=== PATIENT | female | born 1965 | race Caucasian/White ===

== ENCOUNTER → 2017-04-08 17:02 | Outpatient (CLI) | payer MEDICARE | END | disposition home or self-care (01) | LOC: D.MAMMO 02-25 10:00 | DX: R92.8 Other abnormal and inconclusive findings on diagnostic imaging of breast (principal) ==

== ENCOUNTER → 2017-07-13 17:21 | Outpatient (CLI) | payer MEDICARE | END | disposition home or self-care (01) | LOC: D.MAMMO 09:15 | DX: Z12.31 Encounter for screening mammogram for malignant neoplasm of breast (principal) ==

== ENCOUNTER 2017-11-09 15:51 | Observation (INO) | payer MEDICARE, MEDICAID ==
[~2017-11-09] VITALS: Ht 160 cm; Wt 90.0 kg
--- NOTE | ~2017-11-09 | HEMODYNAMI ---
PATIENT:ANDREY WILSON MEDICAL RECORD: [id number] : 63 LOCATION[facility] [facility] [id number] ADMISSION DATE: 11/09/17 Generatedon:11/10/201715:38 Patient name: ANDREY WILSON Patient #: [id number] SSN: [id number] : 1965 Date of study: 11/10/2017 Page: Of Hemodynamic Procedure Report Patient Data Patient Demographics Procedure consent was obtained First Name: ANDREY Gender: Female Last Name: KATIE : 1965 [facility] Initial: K Age: 52 year(s) Patient #: [id number] Race: Unknown SSN: [id number] Additional ID: [id number] Contact details Address: [place] [address] State: [place] City: [place] Zip code: [address] Past Medical History Allergies Allergen Reaction Date Comments Reported Other allergy 11/10/2017 Codeine Admission Admission Data Admission Date: 11/09/2017 Admission Time: 15:51 Room #: D.2126 Lab Results Lab Result Date: 11/10/2017 Lab Result Time: 0:00 Biochemistry Name Units Result Min Max BUN mg/dl 13 --(--*-)-- 7 18 Creatinine mg/dl 0.6 --(*---)-- 0.6 1.3 CBC Name Units Result Min Max Hemoglobin g/dl 14.3 --(*---)-- 13.5 17.5 Procedure Procedure Types Cath Procedure Diagnostic Procedure LHC LHC w/Coronaries Miscellaneous Procedures Moderate Sedation up to 15 minutes Procedure Description Procedure Date Procedure Date: 11/10/2017 Procedure Start Time: 15:24 Procedure End Time: 15:35 Procedure Staff Name Function Nathaniel Murguia MD Performing Physician Sheila Ga RT Monitor Mela Hall RT Scrub Anamaria Pino RN Nurse Procedure Data Cath Procedure Fluoroscopy Diagnostic fluoroscopy Total fluoroscopy Time: 1.6 time: 1.6 min min Diagnostic fluoroscopy Total fluoroscopy dose: 322 dose: 322 mGy mGy Contrast Material Contrast Material Type Amount (ml) Isovue 300 64 Entry Location Entry Primary Successful Side Size Upsize Upsize Entry Closure Succes sful Closure Location (Fr) 1 (Fr) 2 (Fr) Remarks Device Remarks Femoral Right 5 Fr Exoseal artery Estimated blood loss: 110 ml Diagnostic catheters Device Type Used For End Catheter Placement MULTIPACK JL 4.0 5Fr Procedure catheter MULTIPACK 3DRC 5Fr Procedure catheter MULTIPACK Pigtail 5 Fr Ventriculography catheter Procedure Complications No complications Procedure Medications Medication Administration Route Dosage 0.9% NaCl I.V. 100 ml/hr Oxygen NC 2 l/min Lidocaine 2% added to field 20 Heparin Flush Bag added to field 2 bags (1000units/500ml NS) Versed I.V. 2 mg Fentanyl I.V. 50 mcg Fentanyl I.V. 50 mcg Versed I.V. 2 mg Fentanyl I.V. 50 mcg Versed I.V. 1 mg Versed I.V. 1 mg Fentanyl I.V. 50 mcg Fentanyl I.V. 100 mcg Hemodynamics Rest HGB: 14.3 (g/dl) Heart Rate: 82 (bpm) Pressure Samples Time Site Value (mmHg) Purpose Heart Use Rate(bpm) 15:31 LV 130/9,11 Snapshot 97 15:32 AO 125/72(96) Pullback 96 Gradients Valve Time Site Site 2 Mean SEP/DFP Peak To Heart Use 1 (mmHg) (sec/min) Peak Rate (mmHg) (bpm) Aortic 15:32 LV AO 23 43 96 125/72(96) Calculations Valve P-P Mean Valve Index Valve Source Name Gradient Area Flow (cm2) Aortic 23 23 Snapshots Pre Cath Intra NCS Post Cath Vital Signs Time Heart Resp SPO2 etCO2 NIBP Rhythm Pain Sedation Rate (ipm) (%) (mmHg) (mmHg) Status Level (bpm) 14:56:21 87 18 98 0 114/68(87) NSR 0 (11) 10(A) , No pain 15:00:31 80 20 96 36.9 112/66(94) NSR 0 (11) 10(A) , No pain 15:04:40 80 18 98 33.1 117/68(89) NSR 0 (11) 10(A) , No pain 15:08:52 90 17 98 36.9 113/69(88) NSR 0 (11) 10(A) , No pain 15:13:02 87 20 96 37.6 115/66(83) NSR 0 (11) 10(A) , No pain 15:17:12 86 16 98 11.3 101/62(80) NSR 0 (11) 9(A) , No pain 15:21:22 92 20 98 23.3 107/63(88) NSR 0 (11) 9(A) , No pain 15:25:30 89 14 98 23.3 107/70(89) NSR 0 (11) 9(A) , No pain 15:29:38 91 16 96 27.8 116/68(90) NSR 0 (11) 9(A) , No pain 15:33:48 94 16 96 39.9 116/72(92) NSR 0 (11) 10(A) , No pain Medications Time Medication Route Dose Verified Delivered Reason Notes Effe ctiveness by by 14:40:29 0.9% NaCl I.V. 100 Nathaniel Anamaria used for ml/hr Blade Pino net programmer analyst 14:40:38 Oxygen NC 2 Nathaniel Anamaria Per l/min Blade Pino RN physician 14:40:47 Lidocaine 2% added 20ml Nathaniel Nathaniel for local to vial Blade Murguia MD anesthetic field 14:40:56 Heparin Flush added 2 Nathaniel Nathaniel used for Bag to bags Blade Murguia MD procedure (1000units/500ml field NS) 15:09:51 Versed I.V. 2 mg Nathaniel Anamaria for lBade Pino RN sedation 15:10:04 Fentanyl I.V. 50 Nathaniel Anamaria for mcg Blade Pino RN sedation 15:13:29 Fentanyl I.V. 50 Nathaniel Anamaria for amber Pino RN sedation 15:13:35 Versed I.V. 2 mg Nathaniel Anamaria for Blade Pino RN sedation 15:15:13 Fentanyl I.V. 50 Nathaniel Anamaria for amber Pino RN sedation 15:15:19 Versed I.V. 1 mg Nathaniel Anamaria for Blade Pino RN sedation 15:24:01 Versed I.V. 1 mg Nathaniel Anamaria for Blade Pino RN sedation 15:24:45 Fentanyl I.V. 50 Nathaniel Pino RN sedation 15:27:05 Fentanyl I.V. 100 Nathaniel Pino RN sedation Procedure Log Time Note 14:37:55 Lab Result : BUN 13 mg/dl 14:37:55 Lab Result : Hemoglobin 14.3 g/dl 14:37:55 Lab Result : Creatinine 0.6 mg/dl 14:38:26 Diagnostic Cath status Elective 14:38:28 Sheila Harmeet RT(R) sent for patient. Start room use. 14:38:29 Time tracking: Regular hours 14:38:35 Plan of Care:Hemodynamics will remain stable., Cardiac rhythm will remain stable., Comfort level will be maintained., Respiratory function will remain adequate., Patient/ family verbilizes understanding of procedure., Procedure tolerated without complication., Recovers from procedure without complications.. 14:40:29 0.9% NaCl 100 ml/hr I.V. was administered by Anamaria Pino RN; used for procedure; 14:40:38 Oxygen 2 l/min NC was administered by Anamaria Pino RN; Per physician; 14:40:47 Lidocaine 2% 20ml vial added to field was administered by Nathaniel Murguia MD; for local anesthetic; 14:40:56 Heparin Flush Bag (1000units/500ml NS) 2 bags added to field was administered by Nathaniel Murguia MD; used for procedure; 14:50:08 Patient received from Med II to CCL 2 Alert and oriented. Tansferred to table in Supine position. 14:50:09 Warm blankets applied, and jayla hugger turned on for patient comfort. 14:50:10 Correct patient and procedure confirmed by team. 14:50:11 Signed procedure consent form obtained from patient. 14:50:12 ECG and BP/O2 sat monitors applied to patient. 14:55:17 Vital chart was started 14:55:20 Baseline sample Acquired. 14:55:23 Rhythm: sinus rhythm 14:55:25 Full Disclosure recording started 14:55:43 H&P Date Dictated: 11/09/2017 Within 30 days and on chart.. 14:55:45 Pre-procedure instructions explained to patient. 14:55:47 Family in patients room. 14:55:49 Patient NPO since Midnight. 14:56:04 Patient allergic to Other allergyCodeine 14:56:10 Is the patient allergic to Iodine/contrast media? No. 14:56:11 Was the patient premedicated? Yes 14:56:13 Is patient on blood thinner?No 14:56:15 Patient diabetic? No. 14:56:19 Snore? Yes 14:56:20 Sleep apnea? No 14:56:27 Airway obstruction? Yes Asthma 14:56:31 Dentures? No ? 14:56:36 Patient pain scale 0/10 ?. 14:56:47 IV patent on arrival in left hand with 0.9% NaCl at [facility]. 14:56:52 Lab results completed and on chart. 14:56:55 Right groin area was prepped with chlora-prep and draped in sterile fashion 14:56:57 Alarms reviewed by RVicente N. 14:56:57 Sharps counted by scrub and verified by R.N. 14:56:58 Physician paged 15:08:00 Physician arrived 15:08:01 --------ALL STOP TIME OUT------ 15:08:02 Final Timeout: patient, procedure, and site verified with staff and physician. All members of the team are in agreement. 15:08:04 Right groin site verified by team. 15:08:07 Physical assessment completed. ASA score P 2 - A patient with mild systemic disease as per Nathaniel Murguia MD. 15:08:13 Sedation plan: IV Moderate Sedation Medication:Versed, Fentanyl 15:08:19 Use device set Femoral Dx 15:08:22 ACIST Syringe (65392) opened to sterile field. 15:08:22 Bag Decanter (2002S) opened to sterile field. 15:08:23 Medline Cath Pack ([id number]) opened to sterile field. 15:08:23 SHEATH 5FR [place] (IBE883) opened to sterile field. 15:08:24 DIAGNOSTIC WIRE .035 260cm J wire (972457) opened to sterile field. 15:08:26 ACIST Hand Control (81065) opened to sterile field. 15:08:26 ACIST Manifold (36561) opened to sterile field. 15:08:27 DIAGNOSTIC Multipack 5Fr catheter set (HT7633) opened to sterile field. 15:08:28 Tegaderm 4 x 4 (1626W) opened to sterile field. 15:08:32 PERCUTANEOUS ENTRY 19GA needle opened to sterile field. 15:09:51 Versed 2 mg I.V. was administered by Anamaria Pino RN; for sedation; 15:10:04 Fentanyl 50 mcg I.V. was administered by Anamaria Pino RN; for sedation; 15:13:29 Fentanyl 50 mcg I.V. was administered by Anamaria Pino RN; for sedation; 15:13:35 Versed 2 mg I.V. was administered by Anamaria Pino RN; for sedation; 15:15:13 Fentanyl 50 mcg I.V. was administered by Anamaria Pino RN; for sedation; 15:15:19 Versed 1 mg I.V. was administered by Anamaria Pino RN; for sedation; 15:18:42 Zero performed for pressure channel P1 15:18:51 Zero performed for pressure channel P1 15:24:01 Versed 1 mg I.V. was administered by Anamaria Pino RN; for sedation; 15:24:10 Procedure started. 15:24:22 Local anesthetic to right femoral artery with Lidocaine 2% by Nathaniel Murguia MD.INITIAL ACCESS ONLY 15:24:45 Fentanyl 50 mcg I.V. was administered by Anamaria Pino RN; for sedation; 15:25:35 A 5 Fr sheath was inserted into the Right Femoral artery 15:26:16 A MULTIPACK JL 4.0 5Fr catheter was advanced over the wire and used for Procedure. 15:27:05 Fentanyl 100 mcg I.V. was administered by Anamaria Pino RN; for sedation; 15:27:30 LCA angiography performed. 15:28:34 Catheter removed. 15:28:53 A MULTIPACK 3DRC 5Fr catheter was advanced over the wire and used for Procedure. 15:30:12 RCA angiography performed. 15:30:16 Catheter removed. 15:30:25 A MULTIPACK Pigtail 5 Fr catheter was advanced over the wire and used for Ventriculography. 15:31:00 LV gram done using DAVID 15:32:15 EF : 60 % 15:33:02 Catheter removed. 15:33:09 EXOSEAL 5Fr (EX500) opened to sterile field. 15:33:22 Sheath removed intact; hemostasis achieved with Exoseal to the Right Femoral artery. 15:33:25 Procedure ended.(Physican Out) 15:33:37 Fluoroscopy time 01.60 minutes. 15:33:56 Flurop Dose total: 322 15:33:56 Fluoroscopy dose: 322 mGy 15:34:01 Contrast amount:Isovue 300 64ml. 15:34:03 Sharps counted by scrub and verified by R.N. 15:34:08 Insertion/operative site no bleeding no hematoma. 15:34:11 Post-op/insertion site Right Femoral artery dressed using a 4 x 4 and Tegaderm. 15:34:13 Post Procedure Pulses reassessed and unchanged 15:34:17 Post procedure rhythm: unchanged. 15:34:20 Estimated blood loss: 110 ml 15:34:24 Post procedure instruction explained to patient.Patient verbalizes understanding. 15:34:32 Procedure and supply charges have been captured, reviewed, submitted and are correct. 15:34:51 Procedure Complication : No complications 15:34:54 Vital chart was stopped 15:34:55 See physician's report for complete and final results. 15:34:57 Report given to [facility]. 15:35:00 Patient transfered to [facility] with Bed. 15:35:03 Procedure ended. 15:35:03 Full Disclosure recording stopped 15:35:14 End room use (Document Last) Device Usage Item Name Manufacture Quantity Catalog Hospital Part Current Minimal Lot# / Number Charge Number Stock Stock Serial# Code ACIST Acist 1 50054 015022 715809 315914 20 Syringe Medical (79514) Systems Inc Bag Decanter Microtek 1 2001S 657607 21787 844744 5 () Medical Inc. Medline Cath Cardinal 1 [id number] 685721 68911 870088 5 Pack Health ([id number]) SHEATH 5FR Terumo 1 HTW007 921819 915178 862847 40 [place] (GRZ905) DIAGNOSTIC St Qasim 1 603036 607125 752313 102227 30 WIRE .035 260cm J wire (323300) ACIST Hand Acist 1 58089 892775 718617 670032 5 Control Medical (04391) Systems Inc ACIST Acist 1 48684 746787 095023 171204 5 Manifold Medical (39538) Systems Inc DIAGNOSTIC Cardinal 1 MC4535 703823 92532 326966 30 Multipack Health 5Fr catheter set (AH0033) Tegaderm 4 x 3M 1 1626W 874459 675927 537584 5 4 (1626W) PERCUTANEOUS [facility] 1 [id number] 126376 513284 5 ENTRY 19GA needle MULTIPACK JL Cardinal 1 990710 5 4.0 5Fr Health catheter MULTIPACK Cardinal 1 616679 5 3DRC 5Fr Health catheter MULTIPACK Cardinal 1 846035 5 Pigtail 5 Fr Health catheter EXOSEAL 5Fr Cardinal 1 EX500 928907 030803 505503 10 (EX500) Health Signature Audit [place] Stage Time Signature Unsigned Intra-Procedure 11/10/2017 Sheila Ga 3:38:21 PM RT(R) Signatures Monitor : Sheila Ga Signature : RT Date : Time : [address] [address]
[2017-11-09 16:24] VITALS: BP 129/55; Ht 160 cm; Wt 90.0 kg
[2017-11-09] MEDS ORDERED: EFFEXOR XR150 MG PO (16:31)
[2017-11-09] MEDS ORDERED: MINIPRESS2 MG PO (16:32)
[2017-11-09] MEDS ORDERED: REMERON15 MG PO (16:33)
[2017-11-09] MEDS ORDERED: ATIVAN1 MG PO (16:34)
[2017-11-09] MEDS ORDERED: VITAMIN B-1000 MCG/M IM (16:35)
[2017-11-09 16:45] LABS: BASOPHILS 0.3 % (0-2); EOSINOPHILS 0.1 % (0-7); HEMATOCRIT 42.7 % (36.0-48.0); HEMOGLOBIN 14.3 g/dL (12-16); IMMATURE GRANULOCYTES 0.1 % (0-5); MCH 31.4 pg (26.0-34.0); MCHC 33.5 g/dL (31.0-37.0); MCV 93.6 fL (80.0-100.0); MEAN PLATELET VOLUME 9.1 fL (7.4-10.4); MONOCYTES 7.8 % (2-11); NEUTROPHILS 59.7 % (40-80); PLATELET COUNT 270 10x3/uL (130-400); RBC 4.56 10x6/uL (4.00-5.40); RDW 13.3 % (11.5-14.5); WBC 7.5 10x3/uL (4.8-10.8)
[2017-11-09 17:10] LABS: ALKALINE PHOSPHATASE 137 U/L (46-116); ALT (SGPT) 102 U/L (10-68); BILIRUBIN - TOTAL 0.28 mg/dL (0.2-1.3); CALC OSMOLALITY 282 mosm/kg (275-300); CALCIUM 9.9 mg/dL (8.5-10.1); CARBON DIOXIDE 33.4 mmol/L (21.0-32.0); CHLORIDE - SERUM 105 mmol/L (98-107); CKMB 0.1 U/L (0.0-3.6); CREATINE KINASE 64 UL (21-215); CREATININE - SERUM 0.7 mg/dL (0.6-1.3); GLUCOSE 80 mg/dL (74-106); PROTEIN - SERUM 8.1 g/dL (6.4-8.2); SODIUM 143 mmol/L (136-145); UREA NITROGEN 11 mg/dL (7-18); eGFR NON AFRICAN AMERICAN > 90 mL/min (90-120)
[2017-11-09 17:13] LABS: TROPONIN-I < 0.017 ng/mL (0.000-0.060)
[2017-11-09 19:00] VITALS: BP 111/59
[2017-11-09 23:35] LABS: CKMB 0.1 U/L (0.0-3.6); CREATINE KINASE 66 UL (21-215); TROPONIN-I < 0.017 ng/mL (0.000-0.060)
[2017-11-10] VITALS: BP 127/69
[2017-11-10 04:00] VITALS: BP 125/71
[2017-11-10 05:36] LABS: CKMB 0.2 U/L (0.0-3.6); CREATINE KINASE 59 UL (21-215)
[2017-11-10 05:49] LABS: TROPONIN-I < 0.017 ng/mL (0.000-0.060)
--- NOTE | 2017-11-10 06:29 | NUR ---
IV TO RIGHT HAND FLUSED WITH OUT DIFFICULTY.
--- NOTE | 2017-11-10 07:15 | NUR ---
RESTING QUIETLY DENIES ANY NEEDS OR DISCOMFORT NAD NOTED
[2017-11-10 08:06] LABS: CALC OSMOLALITY 281 mosm/kg (275-300); CALCIUM 8.9 mg/dL (8.5-10.1); CHLORIDE - SERUM 105 mmol/L (98-107); CREATININE - SERUM 0.6 mg/dL (0.6-1.3); POTASSIUM - SERUM 4.2 mmol/L (3.5-5.1); SODIUM 141 mmol/L (136-145); UREA NITROGEN 13 mg/dL (7-18); eGFR NON AFRICAN AMERICAN > 90 mL/min (90-120)
[2017-11-10 08:07] LABS: GLUCOSE 123 mg/dL (74-106)
[2017-11-10 08:11] LABS: BASOPHILS 0.1 % (0-2); EOSINOPHILS 0 % (0-7); HEMATOCRIT 39.8 % (36.0-48.0); IMMATURE GRANULOCYTES 0.3 % (0-5); MCH 30.7 pg (26.0-34.0); MCHC 32.7 g/dL (31.0-37.0); MCV 93.9 fL (80.0-100.0); MEAN PLATELET VOLUME 9.6 fL (7.4-10.4); MONOCYTES 6.2 % (2-11); NEUTROPHILS 70.4 % (40-80); PLATELET COUNT 297 10x3/uL (130-400); RBC 4.24 10x6/uL (4.00-5.40); RDW 13.2 % (11.5-14.5); WBC 7.6 10x3/uL (4.8-10.8)
[2017-11-10 08:22] VITALS: BP 112/66
[2017-11-10 12:37] VITALS: BP 135/79
--- NOTE | 2017-11-10 15:52 | NUR ---
PATIENT RETURNED FROM TRANSITIONS RN CARE COORDINATOR AT THIS TIME. NO COMPLAINTS OF PAIN OR DISCOMFORT. GROIN SOFT NO PROBLEMS TO NOTE.
--- NOTE | 2017-11-10 18:59 | NUR ---
DISCHARGE INFORMATION REVIEWED WITH PATIENT AND PATIENT VERBALIZES INSTRUCTION. PATIENT AMBULATED IN ROOM WITH NO PROBLEM NOTED. NO DRAINAGE OR CHANGE IN CATH SITE. IV REMOVED CATHETER INTACT. PATIENT LEAVES FACILITY AT THIS TIME VIA PRIVATE TRANSPORT.
== END 2017-11-10 19:02 | disposition home or self-care (01) ==
LOC: D.M2 15:51 → OBSVTIME 15:51 → D.M2 11-10 19:02
PROVIDERS: Internal Medicine Cardiovascular Disease; ADMIT Family Medicine
DX: R07.89 Other chest pain (principal); F17.203 Nicotine dependence unspecified, with withdrawal; K21.9 Gastro-esophageal reflux disease without esophagitis

== ENCOUNTER → 2017-11-26 10:12 | Outpatient (CLI) | payer MEDICARE ==
[2017-11-09 16:24] VITALS: BMI 33.9
[~2017-11-26 10:12] MED LIST: ATIVAN1 MG PO; EFFEXOR XR150 MG PO; MINIPRESS2 MG PO; REMERON15 MG PO; VITAMIN B-1000 MCG/M IM
== END | disposition home or self-care (01) ==
LOC: D.RT 10:12
DX: R07.9 Chest pain, unspecified (principal); R06.02 Shortness of breath

== ENCOUNTER → 2018-02-23 09:54 | Outpatient (CLI) | payer MEDICARE, MEDICAID ==
[2017-11-09 16:24] VITALS: BMI 33.9
[2018-02-24 14:24] LABS: IMMUNOGLOBULIN A 129 mg/dL (87-352); IMMUNOGLOBULIN G 822 mg/dL (700-1600); IMMUNOGLOBULIN M 141 mg/dL (26-217)
[2018-02-28 05:39] LABS: IMMUNOGLOBULIN E 114 IU/mL (0-100)
== END | disposition home or self-care (01) ==
LOC: D.LAB 02-22 10:00
PROVIDERS: Internal Medicine Pulmonary Disease
DX: R94.2 Abnormal results of pulmonary function studies (principal)

== ENCOUNTER 2018-06-07 13:19 | Emergency (ER) | payer MEDICARE ==
[~2018-06-07] VITALS: Ht 160 cm; Wt 86.4 kg
[2018-06-07 13:44] VITALS: Ht 160 cm; Wt 86.4 kg
[2018-06-07] MEDS ORDERED: WELLBUTRIN SR150 MG PO (13:45)
[2018-06-07] MEDS ORDERED: ALBUTEROL1.25 MG/3 INH (13:46)
[2018-06-07] MEDS ORDERED: ULTRAM50 MG PO (13:46)
[2018-06-07 14:46] LABS: BASOPHILS 0.1 % (0-2); EOSINOPHILS 0 % (0-7); HEMATOCRIT 35.6 % (36.0-48.0); HEMOGLOBIN 11.4 g/dL (12-16); IMMATURE GRANULOCYTES 0.3 % (0-5); MCH 29.4 pg (26.0-34.0); MCV 91.8 fL (80.0-100.0); MEAN PLATELET VOLUME 8.9 fL (7.4-10.4); MONOCYTES 8.4 % (2-11); NEUTROPHILS 61.2 % (40-80); PLATELET COUNT 318 10x3/uL (130-400); RBC 3.88 10x6/uL (4.00-5.40); RDW 13.5 % (11.5-14.5); WBC 7.6 10x3/uL (4.8-10.8)
[2018-06-07 15:06] LABS: ALBUMIN 3.9 g/dL (3.4-5.0); ALKALINE PHOSPHATASE 141 U/L (46-116); ALT (SGPT) 31 U/L (10-68); BILIRUBIN - TOTAL 0.25 mg/dL (0.2-1.3); CALC OSMOLALITY 279 mosm/kg (275-300); CALCIUM 9.3 mg/dL (8.5-10.1); CARBON DIOXIDE 28.6 mmol/L (21.0-32.0); CHLORIDE - SERUM 105 mmol/L (98-107); CREATININE - SERUM 0.8 mg/dL (0.6-1.3); GLUCOSE 90 mg/dL (74-106); POTASSIUM - SERUM 4.3 mmol/L (3.5-5.1); SODIUM 141 mmol/L (136-145); UREA NITROGEN 10 mg/dL (7-18); eGFR NON AFRICAN AMERICAN 79 mL/min (90-120)
[2018-06-07 17:40] VITALS: BP 154/81
== END 2018-06-07 17:44 | disposition home or self-care (01) ==
LOC: D.ER 13:19
PROVIDERS: Family Medicine
DX: J44.9 Chronic obstructive pulmonary disease, unspecified (principal); R53.1 Weakness; F17.200 Nicotine dependence, unspecified, uncomplicated

== ENCOUNTER → 2018-10-20 08:38 | Outpatient (CLI) | payer MEDICARE ==
[2018-06-07 13:44] VITALS: BMI 33.7
[~2018-10-20 08:38] MED LIST changes: +ALBUTEROL1.25 MG/3 INH; +ULTRAM50 MG PO; +WELLBUTRIN SR150 MG PO
== END | disposition home or self-care (01) ==
LOC: D.MRI 08:30
DX: M25.511 Pain in right shoulder (principal)

== ENCOUNTER → 2018-12-07 14:07 | Outpatient (CLI) | payer MEDICARE ==
[2018-06-07 13:44] VITALS: BMI 33.7
== END | disposition home or self-care (01) ==
LOC: D.CT 14:07
DX: J18.1 Lobar pneumonia, unspecified organism (principal)

== ENCOUNTER → 2018-12-20 08:59 | Outpatient (CLI) | payer MEDICARE ==
[2018-06-07 13:44] VITALS: BMI 33.7
== END | disposition home or self-care (01) ==
LOC: D.RT 08:59
DX: J44.9 Chronic obstructive pulmonary disease, unspecified (principal)

== ENCOUNTER → 2019-05-27 10:00 | Outpatient (CLI) | payer MEDICARE ==
[2018-06-07 13:44] VITALS: BMI 33.7
== END | disposition home or self-care (01) ==
LOC: D.MAMMO 10:00
PROVIDERS: ATTEND Family Medicine
DX: Z12.31 Encounter for screening mammogram for malignant neoplasm of breast (principal)

== ENCOUNTER → 2019-06-20 12:43 | Outpatient (CLI) | payer MEDICARE ==
[2018-06-07 13:44] VITALS: BMI 33.7
== END | disposition home or self-care (01) ==
LOC: D.RT 12:43
PROVIDERS: ATTEND Internal Medicine Pulmonary Disease
DX: J44.9 Chronic obstructive pulmonary disease, unspecified (principal)

== ENCOUNTER → 2019-07-22 08:55 | Outpatient (CLI) | payer MEDICARE ==
[2018-06-07 13:44] VITALS: BMI 33.7
[~2019-07-22 08:55] MED LIST changes: +TORADOL10 MG PO; +ZOFRAN8 MG PO
== END | disposition home or self-care (01) ==
LOC: D.NM 08:55
PROVIDERS: ATTEND Family Medicine
DX: K80.20 Calculus of gallbladder without cholecystitis without obstruction (principal)

== ENCOUNTER 2019-07-25 09:19 | Emergency (ER) | payer MEDICARE ==
[~2019-07-25] VITALS: Ht 160 cm; Wt 86.4 kg
[~2019-07-25 09:19] MED LIST changes: -TORADOL10 MG PO; -ZOFRAN8 MG PO
[2019-07-25 09:27] VITALS: Ht 160 cm; Wt 86.4 kg
[2019-07-25 10:08] LABS: BASOPHILS 0.5 % (0-2); EOSINOPHILS 1.6 % (0-7); IMMATURE GRANULOCYTES 0.2 % (0-5); LYMPHOCYTES 36.9 % (15-50); MCH 29.9 pg (26.0-34.0); MCHC 33.3 g/dL (31.0-37.0); MCV 89.6 fL (80.0-100.0); MONOCYTES 7.4 % (2-11); NEUTROPHILS 53.4 % (40-80); PLATELET COUNT 261 10x3/uL (130-400); RBC 4.02 10x6/uL (4.00-5.40); WBC 4.3 10x3/uL (4.8-10.8)
[2019-07-25 10:14] LABS: ALBUMIN 3.5 g/dL (3.4-5.0); ALKALINE PHOSPHATASE 113 U/L (46-116); ALT (SGPT) 58 U/L (10-68); CALCIUM 9.3 mg/dL (8.5-10.1); CARBON DIOXIDE 23.8 mmol/L (21.0-32.0); CHLORIDE - SERUM 106 mmol/L (98-107); POTASSIUM - SERUM 3.8 mmol/L (3.5-5.1); PROTEIN - SERUM 7.3 g/dL (6.4-8.2); SODIUM 142 mmol/L (136-145); UREA NITROGEN 10 mg/dL (7-18); eGFR NON AFRICAN AMERICAN 61 mL/min (90-120)
[2019-07-25 10:16] LABS: AMYLASE - SERUM 47 U/L (25-115); LIPASE 112 U/L (73-393)
[2019-07-25 10:19] LABS: CALC OSMOLALITY 285 mosm/kg (275-300); GLUCOSE 166 mg/dL (74-106); TROPONIN-I < 0.017 ng/mL (0.000-0.060)
[2019-07-25 10:36] LABS: APPEARANCE CLEAR (CLEAR); BILIRUBIN NEGATIVE (NEGATIVE); COLOR STRAW (YELLOW); GLUCOSE NEGATIVE (NEGATIVE); KETONE NEGATIVE (NEGATIVE); NITRITE NEGATIVE (NEGATIVE); PROTEIN NEGATIVE (NEGATIVE); UROBILINOGEN NORMAL (NORMAL)
--- NOTE | 2019-07-25 11:04 | NUR ---
DR. DURBIN NOTIFIED AND REVIEWED PT'S BEHAVIOR AND ASSESSMENT RESULTS. PT IS A LOW RISK PER DR. DURBIN. DR. DURBIN STATED TO GIVE RESOURCES TO PT AT TIME OF DISCHARGE. NO FURTHER ORDERS AT THIS TIME. RESOURCES REVIEWED WITH PT AND SHE VERBALIZED UNDERSTANDING.
[2019-07-25] MEDS ORDERED: ZOFRAN8 MG PO (12:54)
[2019-07-25] MEDS ORDERED: TORADOL10 MG PO (12:54)
[2019-07-25 13:20] VITALS: BP 107/62
== END 2019-07-25 13:20 | disposition home or self-care (01) ==
LOC: D.ER 09:19
PROVIDERS: Emergency Medicine
DX: R10.11 Right upper quadrant pain (principal)

== ENCOUNTER → 2019-08-29 13:23 | Outpatient (CLI) | payer MEDICARE ==
[2019-07-25 09:27] VITALS: BMI 33.7
[~2019-08-29 13:23] MED LIST changes: +ATIVAN0.5 MG PO; +IPRAT-ALBUT 0.5-3 ML UPD; +TORADOL10 MG PO; +ZOFRAN8 MG PO; +[UNRECOGNIZED DRUG - OTHER] IM
== END | disposition home or self-care (01) ==
LOC: D.RT 13:23
PROVIDERS: ATTEND Internal Medicine Pulmonary Disease
DX: J44.9 Chronic obstructive pulmonary disease, unspecified (principal)

== ENCOUNTER 2019-09-14 05:29 | Day surgery (SDC) | payer MEDICARE ==
[~2019-09-14] VITALS: Ht 162.6 cm; Wt 89.8 kg
[2019-09-14 05:50] LABS: HEMATOCRIT 35.9 % (36.0-48.0); HEMOGLOBIN 11.8 g/dL (12-16); MCH 30.7 pg (26.0-34.0); MCHC 32.9 g/dL (31.0-37.0); MCV 93.5 fL (80.0-100.0); MEAN PLATELET VOLUME 8.4 fL (7.4-10.4); RBC 3.84 10x6/uL (4.00-5.40); RDW 14.6 % (11.5-14.5)
[2019-09-14 07:00] VITALS: BP 111/61; Ht 162.6 cm; Wt 89.8 kg
--- NOTE | 2019-09-14 07:10 | NUR ---
INFORMED AGRICULTURAL EXTENSION SPECIALIST OF POSITIVE SUICIDE RISK SCREEN.
--- NOTE | 2019-09-14 07:44 | NUR ---
DR DURBIN NOTIFIED AND REVIEWED PT's BEHAVIOR AND ASSESSMENT RESULTS. PT IS A LOW RISK PER DR DURBIN. DR DURBIN STATED TO GIVE RESOURCES TO PT AT TIME OF DISCHARGE. NO FURTHER ORDERS AT THIS TIME. RESOURCES REVIEWED WITH PT ANDSHE VERBALIZED UNDERSTANDING.
--- NOTE | 2019-09-14 11:00 | NUR ---
1050-REC'D FROM RR. DROWSY,EASILY AROUSED WITH VERBAL STIMULI.VSS,DRESSING TO ABD X 4 BANDAIDS CDI. CL IN EASY REACH
--- NOTE | 2019-09-14 11:01 | NUR ---
1100-FULL LIQUID TRAY TO ROOM. AWAKE AND ALERT. NO DISTRESS.
--- NOTE | 2019-09-14 11:20 | NUR ---
1120-REPORTS PAIN 05/09. NEW ORDER RECEIVED. AWAITING FOR PHARMACY TO VERIFY.
--- NOTE | 2019-09-14 12:30 | NUR ---
1230-DISCHARGE CRITERIA MET. REMOVED IV FROM LAC WITH CATH INTAC, DISPOSED INTO SHARPS,COVERED SITE WITH BANDAID. REVIEWED POST OPERATIVE INSTRKUCTIONS WITH SPOUSE AND PT.VERBALIZED UNDERSTANDING WITHOUT FURTHER QUESTIONS OR CONCERNS. ESCORTED OUT VIA W/C WITH AWAITING TO DRIVE HOME.
--- NOTE | 2019-09-15 21:29 | OP ---
PATIENT NAME: ANDREY WILSON MEDICAL RECORD: [id number] :63 LOCATION:D.OPS ADMISSION DATE: SURGEON: LOPEZ PAREDES MD DATE OF OPERATION: 09/14/2019 PREOPERATIVE DIAGNOSES: 1. Symptomatic gallstones. 2. Radiographic evidence of fatty liver disease. POSTOPERATIVE DIAGNOSES: 1. Symptomatic gallstones. 2. Radiographic evidence of fatty liver disease. 3. Hepatomegaly. PROCEDURES: 1. Laparoscopic cholecystectomy. 2. Intraoperative cholangiography without immediate surgeon interpretation. 3. 14-gauge core needle liver biopsy. SURGEON: Lopez Paredes MD DESIGN INTERN: None. BLOOD LOSS: Minimal. ANESTHESIA: General. COMPLICATIONS: None. The indication for liver biopsy was hepatomegaly as well as ultrasound evidence of fatty liver disease. OPERATIVE COURSE: The patient was conveyed to the operating room electively on 09/14/2019. General anesthesia was induced by the anesthesia staff. The abdomen was sterilely prepped and draped. A skin incision was accomplished in the left upper quadrant. A Veress needle was inserted through the skin incision into the peritoneal cavity. CO2 insufflation was begun. Once a sufficient pneumoperitoneum had been achieved, a 5-mm trocar was inserted through an incision in the right upper quadrant. Under direct internal vision utilizing television camera, a 12-mm trocar was inserted through an incision at the umbilicus. Another 5-mm trocar was inserted through this incision far laterally in the right upper quadrant. During insertion of the Veress needle and all trocars, there appeared to have been no injury to the bowels, any intraperitoneal or retroperitoneal structures. I advanced a 14-gauge core biopsy device under laparoscopic guidance. Cores were obtained over the convexity of the liver. The biopsy sites were made hemostatic with the electrocautery. I then grasped the gallbladder. I advanced a cholangiogram trocar. I punctured the fundus of the gallbladder. I aspirated bile. I then injected dye. Under real time fluoroscopy, static cholangiographic images were obtained. Dr. Adrian called later in the case and told me that he felt that there was no common bile duct stone and that the cholangiogram looked good. The cholangiogram trocar was removed. The gallbladder was grasped and retracted OPERATIVE REPORT [id number] ANDREY WILSON cephalad. The infundibulum was grasped and retracted laterally. Blunt dissection was begun in the triangle of Calot. Two cystic arteries and one cystic duct were identified. These were clipped multiply and divided between clips. The gallbladder was then excised from its bed in the liver. This was placed within a bag retrieval device and was withdrawn through the umbilical fascia defect. The 12-mm trocar was replaced in the abdomen were reinsufflated. I irrigated and aspirated the right upper quadrant. There was no bleeding even at low pressure of 8. A topical hemostatic agent was added to the gallbladder fossa for additional hemostasis. The 12-mm trocar was removed. The Arun-Yumi suture closure device and 0 Vicryl sutures were used to close the umbilical fascia defect. All the trocars were removed and the abdomen desufflated. The skin incision at the umbilicus was closed with interrupted 4-0 Vicryl Rapide sutures. The other skin incisions were closed with interrupted intracuticular 3-0 Vicryls. Benzoin and Steri-Strips were applied. The patient was then extubated and conveyed to the post-anesthesia care unit where she was in stable condition. TRANSINT:[id number] Voice Confirmation ID: [id number] DOCUMENT ID: [id number] LOPEZ PAREDES MD at 2129 CC: [id number] DICTATION DATE: 09/14/19 1010 BOOKMOBILE LIBRARIAN: 09/14/19 1057 [facility] 09/14/[id number] [place] [address]
== END 2019-09-14 12:30 | disposition home or self-care (01) ==
LOC: D.OPS 05:29 → D.PAN 08:00 → D.OPS 12:30
PROVIDERS: Anesthesiology; ATTEND Surgery
DX: K80.80 Other cholelithiasis without obstruction (principal); K76.0 Fatty (change of) liver, not elsewhere classified; R16.0 Hepatomegaly, not elsewhere classified

== ENCOUNTER 2019-12-18 13:21 | Emergency (ER) | payer MEDICARE ==
[~2019-12-18] VITALS: Ht 162.6 cm; Wt 90.5 kg
[2019-12-18 13:30] VITALS: Ht 162.6 cm; Wt 90.5 kg
[2019-12-18 13:50] LABS: BASOPHILS 0.1 % (0-2); EOSINOPHILS 0.2 % (0-7); HEMOGLOBIN 11.4 g/dL (12-16); IMMATURE GRANULOCYTES 0.2 % (0-5); LYMPHOCYTES 12.9 % (15-50); MCH 28.6 pg (26.0-34.0); MCHC 31.7 g/dL (31.0-37.0); MCV 90.2 fL (80.0-100.0); MEAN PLATELET VOLUME 8.8 fL (7.4-10.4); MONOCYTES 6.8 % (2-11); NEUTROPHILS 79.8 % (40-80); PLATELET COUNT 289 10x3/uL (130-400); RBC 3.99 10x6/uL (4.00-5.40); RDW 12.5 % (11.5-14.5); WBC 8.4 10x3/uL (4.8-10.8)
[2019-12-18 14:05] LABS: APTT 22.5 SECONDS (22.8-39.4); INR 0.9 (0.85-1.17); PROTIME 12.1 SECONDS (11.6-15.0)
[2019-12-18 14:07] LABS: CALC OSMOLALITY 277 mosm/kg (275-300); CALCIUM 9.1 mg/dL (8.5-10.1); CARBON DIOXIDE 26.9 mmol/L (21.0-32.0); CHLORIDE - SERUM 102 mmol/L (98-107); CREATININE - SERUM 0.8 mg/dL (0.6-1.3); POTASSIUM - SERUM 4.3 mmol/L (3.5-5.1); SODIUM 138 mmol/L (136-145); UREA NITROGEN 16 mg/dL (7-18); eGFR NON AFRICAN AMERICAN 79 mL/min (90-120)
[2019-12-18 14:10] LABS: GLUCOSE 110 mg/dL (74-106)
[2019-12-18 14:23] LABS: ALBUMIN 3.5 g/dL (3.4-5.0); ALKALINE PHOSPHATASE 119 U/L (46-116); ALT (SGPT) 50 U/L (10-68); CKMB 0.2 U/L (0.0-3.6); CREATINE KINASE 62 UL (21-215); MAGNESIUM - SERUM 1.8 mg/dL (1.8-2.4); PROTEIN - SERUM 7.4 g/dL (6.4-8.2)
[2019-12-18 14:34] LABS: TROPONIN-I < 0.017 ng/mL (0.000-0.060)
[2019-12-18 17:18] VITALS: BP 122/56
== END 2019-12-18 17:18 | disposition home or self-care (01) ==
LOC: D.ER 13:21
PROVIDERS: Family Medicine
DX: R07.89 Other chest pain (principal); R10.9 Unspecified abdominal pain; J44.9 Chronic obstructive pulmonary disease, unspecified; G51.0 Bell's palsy

== ENCOUNTER 2020-06-14 11:00 | Outpatient (CLI) | payer MEDICARE ==
[2019-12-18 13:30] VITALS: BMI 34.2
== END 2020-06-14 12:00 | disposition home or self-care (01) ==
LOC: D.MAMMO 11:00
PROVIDERS: ATTEND Family Medicine
DX: Z12.31 Encounter for screening mammogram for malignant neoplasm of breast (principal)

== ENCOUNTER → 2020-06-18 10:52 | Outpatient (CLI) | payer MEDICARE ==
[2019-12-18 13:30] VITALS: BMI 34.2
== END | disposition home or self-care (01) ==
LOC: D.LAB 10:51
PROVIDERS: ATTEND Internal Medicine Pulmonary Disease
DX: Z11.59 Encounter for screening for other viral diseases (principal)

== ENCOUNTER → 2020-06-19 12:34 | Outpatient (CLI) | payer MEDICARE ==
[2019-12-18 13:30] VITALS: BMI 34.2
== END | disposition home or self-care (01) ==
LOC: D.RT 12:34
PROVIDERS: ATTEND Internal Medicine Pulmonary Disease
DX: J44.9 Chronic obstructive pulmonary disease, unspecified (principal)

== ENCOUNTER → 2020-07-26 08:32 | Outpatient (CLI) | payer MEDICARE ==
[2019-12-18 13:30] VITALS: BMI 34.2
== END | disposition home or self-care (01) ==
LOC: D.US 08:32 → D.LAB 09:15 → D.US 09:30
PROVIDERS: ATTEND Internal Medicine Gastroenterology
DX: R10.11 Right upper quadrant pain (principal); R11.2 Nausea with vomiting, unspecified

== ENCOUNTER → 2021-05-27 11:25 | Outpatient (CLI) | payer MEDICARE ==
[2019-12-18 13:30] VITALS: BMI 34.2
== END | disposition home or self-care (01) ==
LOC: D.LAB 11:25
PROVIDERS: ATTEND Internal Medicine Pulmonary Disease
DX: Z11.52 Encounter for screening for COVID-19 (principal)